=== PATIENT | female | born 1985 | race Caucasian/White ===

== ENCOUNTER → 2018-08-31 | Outpatient (REF) | LOC: ZLAB.WCH 16:51 | DX: Z01.89 Encounter for other specified special examinations (principal) ==

== ENCOUNTER → 2018-09-01 | Outpatient (CLI) | payer BC | LOC: COL.VAS 09:30 | DX: M79.602 Pain in left arm (principal); R79.89 Other specified abnormal findings of blood chemistry ==

== ENCOUNTER → 2019-07-22 | Outpatient (CLI) | payer BC | LOC: COL.RAD 08:12 | DX: K29.70 Gastritis, unspecified, without bleeding (principal); R19.5 Other fecal abnormalities; R14.0 Abdominal distension (gaseous) | CPT/HCPCS: A9541 ==